=== PATIENT | male | born 1980 | race Caucasian/White ===

== ENCOUNTER 2016-08-07 09:35 | Emergency (ER) | payer MEDICARE ==
[~2016-08-07 09:35] MED LIST: /CELE20CA OR; /FENT50PA TD; AMBI10TA OR; AMIT10TA2 PO; BUPR15TA OR; DOXE100C OR; MS C15TA5 OR; NICO21DI4 TD; OPAN10TA16 OR; PAIN325T OR; PERC5TAB8 OR; PREG50CA OR; SOMA350T OR; Vit B12 PO; XANA0.25 PO; [UNRECOGNIZED DRUG - REMARK]
--- NOTE | 2016-08-07 10:28 | EDDOCDS ---
Physician Documentation [facility] Name: Iker Harding Age: 36 yrs Sex: Male : 1980 Arrival Date: 08/07/2016 Time: 09:35 Bed Triage 1 Private MD: VIVIANE VILLATORO Disposition: 08/07/16 10:19 Discharged to Home/Self Care. Impression: Low back pain, Sciatica, left side. - Condition is Stable. - Discharge Instructions: Back Injury Prevention, Qipl-hj-Usfv, Back Pain, Adult, Rilr-dy-Mjwf. - Prescriptions for Robaxin- 750 750 mg Oral Tablet - take 1 tablet by ORAL route every 6 hours As needed; 40 tablet. etodolac 200 mg Oral Capsule - take 1 capsule by ORAL route 3 times per day; 30 capsule. - Medication Reconciliation, Local Pharmacy Hours form. - Follow up: Eduar Javier; When: Call to arrange an appointment; Reason: Further diagnostic work-up, Recheck today's complaints, Continuance of care. - Problem is an acute exacerbation. - Symptoms are unchanged. Historical: - Allergies: no known allergies; - Home Meds: 1. Motrin 800 mg oral tab as needed (Last dose: 08/07/2016 06:00) 2. Excedrin Back & Body 250-250 mg Oral tab as needed - PMHx: Asthma; back pain; Hypertension; Pneumonia; - PSHx: back surgery; left elbow; - Social history: Smoking status: Patient uses tobacco products, current every day smoker. No barriers to communication noted, The patient speaks fluent Croatian, Speaks appropriately for age. - Family history: Not pertinent. - : The pt / caregiver states he / she is not on anticoagulants. Home medication list is obtained from the patient. - Exposure Risk Screening:: None identified. Vital Signs: 08/07 09:37 BP 146 / 72; Pulse 88; Resp 18; Temp 97.6(O); Pulse Ox 100% on R/A; Weight 81.65 kg / dem1 180.01 lbs; Height 5 ft. 10 in. (177.80 cm); Pain 9/10; 09:37 Body Mass Index 25.83 (81.65 kg, 177.80 cm) dem1 Signatures: Vilma Dixon RN RN srm Wolfenden, Noe, PA PA btw MTDD
--- NOTE | 2016-08-07 10:28 | EDDOCDS ---
Nurse's Notes [facility] Name: Iker Harding Age: 36 yrs Sex: Male : 1980 Arrival Date: 08/07/2016 Time: 09:35 Bed Triage 1 Private MD: VIVIANE VILLATORO Diagnosis: Low back pain;Sciatica, left side Presentation: 08/07 10:08 Presenting complaint: Patient states: hx of low back pain and surgery. last night dog dash jumped on him and he developed left lower back pain that radiates down his leg to his foot. hx of numbness to last 3 toes to left foot. now its a burning feeling. Acute neurological deficits are not present. Mechanism of Injury: jumped n by his dog. Adult Sepsis Screening: The patient does not have new or worsening altered mentation. Patient's respiratory rate is less than 22. Systolic blood pressure is greater than 100. Patient has a qSOFA score of 0- Negative Sepsis Screen. Suicide/Homicide risk assessment- the patient denies having any suicidal and/or homicidal ideations and does not present with any other emotional, behavioral or mental health complaints. Status: Patient is not a retail customer service representative or dependent. Transition of care: patient was not received from another setting of care. 10:08 Acuity: AZAEL Level 4 [facility] 10:08 Method Of Arrival: Walkin/Carried/Asstd [facility] Triage Assessment: 10:10 General: Appears uncomfortable, Behavior is appropriate for age, cooperative. Pain: srm Pain currently is 9 out of 10 on a pain scale. HIV screening NA for this visit Offered previously. Musculoskeletal: left lower back pain that radiates down leg. Historical: - Allergies: no known allergies; - Home Meds: 1. Motrin 800 mg oral tab as needed (Last dose: 08/07/2016 06:00) 2. Excedrin Back & Body 250-250 mg Oral tab as needed - PMHx: Asthma; back pain; Hypertension; Pneumonia; - PSHx: back surgery; left elbow; - Social history: Smoking status: Patient uses tobacco products, current every day smoker. No barriers to communication noted, The patient speaks fluent Israeli, Speaks appropriately for age. - Family history: Not pertinent. - : The pt / caregiver states he / she is not on anticoagulants. Home medication list is obtained from the patient. - Exposure Risk Screening:: None identified. Screenin:26 Screening information is obtained from the patient. Fall risk: No risks identified. srm Assistance ADL's: requires no assistance with activities of daily living. Abuse/DV Screen: The patient / caregiver reports he/she is: not in a situation that causes fear, pain or injury. Nutritional screening: No deficits noted. Advance Directives: There is no active DNR order. home support is adequate. Assessment: 10:26 General: Appears uncomfortable, Behavior is appropriate for age, cooperative. srm Neurological: Level of Consciousness is awake, alert, Oriented to person, place, time, Moves all extremities. Full function. Respiratory: No deficits noted. Musculoskeletal: Reports left lower back pain. Vital Signs: 09:37 BP 146 / 72; Pulse 88; Resp 18; Temp 97.6(O); Pulse Ox 100% on R/A; Weight 81.65 kg; [facility] Height 5 ft. 10 in. (177.80 cm); Pain 9/10; 09:37 Body Mass Index 25.83 (81.65 kg, 177.80 cm) [facility] Vitals: 09:37 Log In Time: August 07, 2016 at 09:35. [facility] ED Course: 09:36 Patient visited by Barry Blanc. [facility] 09:36 Patient moved to Waiting [facility] 09:37 VIVIANE VILLATORO is Private Physician. [facility] 09:38 Patient visited by Barry Blanc. dem1 09:38 Patient moved to Pre RCE dem1 10:09 Triage Initiated srm 10:11 [facility] btw 10:11 Sameera Clark MD is Attending Physician. btw 10:11 Patient visited by Noe Salvador PA. btw 10:11 Patient moved to Triage 1 srm 10:19 Eduar Javier is Referral Physician. btw 10:26 The patient / caregiver is instructed regarding the plan of care and ED course. Patient srm has correct armband on for positive identification. 10:26 No IV's were initiated during this patient's visit. No procedures done that require srm assistance. Order Results: There are currently no results for this order. Outcome: 10:19 Discharge ordered by Provider. btw 10:26 Discharge Assessment: Patient awake, alert and oriented x 3. No cognitive and/or srm functional deficits noted. Patient verbalized understanding of disposition instructions. patient administered narcotics - no. The following High Risk Discharge criteria are identified: None. Discharged to home ambulatory. Condition: stable. Discharge instructions given to patient, Instructed on discharge instructions, follow up and referral plans. medication usage, Demonstrated understanding of instructions, medications, Pt was receptive of discharge instructions/ teaching. Prescriptions given X 2. No special radiology studies were completed. Property :Personal belongings accompany Pt. 10:27 Patient left the ED. srm Signatures: Vilma Dixon RN RN Noe Medina PA PA btw Mack, Demeishia dem1 MTDDieter
--- NOTE | 2016-08-09 11:28 | EDDOCDS ---
Physician Documentation [facility] Name: Iker Harding Age: 36 yrs Sex: Male : 1980 Arrival Date: 08/07/2016 Time: 09:35 Bed Triage 1 Private MD: VIVIANE VILLATORO Disposition: 08/07/16 10:19 Discharged to Home/Self Care. Impression: Low back pain, Sciatica, left side. - Condition is Stable. - Discharge Instructions: Back Injury Prevention, Mvuy-zh-Hugk, Back Pain, Adult, Divk-dg-Vfgn. - Prescriptions for Robaxin- 750 750 mg Oral Tablet - take 1 tablet by ORAL route every 6 hours As needed; 40 tablet. etodolac 200 mg Oral Capsule - take 1 capsule by ORAL route 3 times per day; 30 capsule. - Medication Reconciliation, Local Pharmacy Hours form. - Follow up: Eduar Javier; When: Call to arrange an appointment; Reason: Further diagnostic work-up, Recheck today's complaints, Continuance of care. - Problem is an acute exacerbation. - Symptoms are unchanged. Historical: - Allergies: no known allergies; - Home Meds: 1. Motrin 800 mg oral tab as needed (Last dose: 08/07/2016 06:00) 2. Excedrin Back & Body 250-250 mg Oral tab as needed - PMHx: Asthma; back pain; Hypertension; Pneumonia; - PSHx: back surgery; left elbow; - Social history: Smoking status: Patient uses tobacco products, current every day smoker. No barriers to communication noted, The patient speaks fluent Tamaz[place], Speaks appropriately for age. - Family history: Not pertinent. - : The pt / caregiver states he / she is not on anticoagulants. Home medication list is obtained from the patient. - Exposure Risk Screening:: None identified. Vital Signs: 08/07 09:37 BP 146 / 72; Pulse 88; Resp 18; Temp 97.6(O); Pulse Ox 100% on R/A; Weight 81.65 kg / dem1 180.01 lbs; Height 5 ft. 10 in. (177.80 cm); Pain 9/10; 09:37 Body Mass Index 25.83 (81.65 kg, 177.80 cm) dem1 MDM: 11:03 [facility] [place] Payment Agreement was scanned into [employer] and attached to record. lg 14:51 T-Sheet-- Draft Copy was scanned into [employer] and attached to record. gb Signatures: Vilma Dixon, RN RN srm Brunilda Juárez, Reg Reg gb eSrvando Gallegos, Reg Reg lg Noe Salvador, MICHAEL RODRIGUEZ btw The chart was reviewed and I authenticate all verbal orders and agree with the evaluation and treatment provided.Attachments: 11:03 [facility] Payment Agreement lg 14:51 T-Sheet-- Draft Copy gb Chart Complete MTDD
--- NOTE | 2016-08-09 11:28 | EDDOCDS ---
Nurse's Notes [facility] Name: Iker Harding Age: 36 yrs Sex: Male : 1980 Arrival Date: 08/07/2016 Time: 09:35 Bed Triage 1 Private MD: VIVIANE VILLATORO Diagnosis: Low back pain;Sciatica, left side Presentation: 08/07 10:08 Presenting complaint: Patient states: hx of low back pain and surgery. last night dog dash jumped on him and he developed left lower back pain that radiates down his leg to his foot. hx of numbness to last 3 toes to left foot. now its a burning feeling. Acute neurological deficits are not present. Mechanism of Injury: jumped n by his dog. Adult Sepsis Screening: The patient does not have new or worsening altered mentation. Patient's respiratory rate is less than 22. Systolic blood pressure is greater than 100. Patient has a qSOFA score of 0- Negative Sepsis Screen. Suicide/Homicide risk assessment- the patient denies having any suicidal and/or homicidal ideations and does not present with any other emotional, behavioral or mental health complaints. 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 Transition of care: patient was not received from another setting of care. 10:08 Acuity: AZAEL Level 4 [facility] 10:08 Method Of Arrival: Walkin/Carried/Asstd [facility] Triage Assessment: 10:10 General: Appears uncomfortable, Behavior is appropriate for age, cooperative. Pain: srm Pain currently is 9 out of 10 on a pain scale. HIV screening NA for this visit Offered previously. Musculoskeletal: left lower back pain that radiates down leg. Historical: - Allergies: no known allergies; - Home Meds: 1. Motrin 800 mg oral tab as needed (Last dose: 08/07/2016 06:00) 2. Excedrin Back & Body 250-250 mg Oral tab as needed - PMHx: Asthma; back pain; Hypertension; Pneumonia; - PSHx: back surgery; left elbow; - Social history: Smoking status: Patient uses tobacco products, current every day smoker. No barriers to communication noted, The patient speaks fluent Omani, Speaks appropriately for age. - Family history: Not pertinent. - : The pt / caregiver states he / she is not on anticoagulants. Home medication list is obtained from the patient. - Exposure Risk Screening:: None identified. Screenin:26 Screening information is obtained from the patient. Fall risk: No risks identified. srm Assistance ADL's: requires no assistance with activities of daily living. Abuse/DV Screen: The patient / caregiver reports he/she is: not in a situation that causes fear, pain or injury. Nutritional screening: No deficits noted. Advance Directives: There is no active DNR order. home support is adequate. Assessment: 10:26 General: Appears uncomfortable, Behavior is appropriate for age, cooperative. srm Neurological: Level of Consciousness is awake, alert, Oriented to person, place, time, Moves all extremities. Full function. Respiratory: No deficits noted. Musculoskeletal: Reports left lower back pain. Vital Signs: 09:37 BP 146 / 72; Pulse 88; Resp 18; Temp 97.6(O); Pulse Ox 100% on R/A; Weight 81.65 kg; [facility] Height 5 ft. 10 in. (177.80 cm); Pain 9/10; 09:37 Body Mass Index 25.83 (81.65 kg, 177.80 cm) [facility] Vitals: 09:37 Log In Time: August 07, 2016 at 09:35. [facility] ED Course: 09:36 Patient visited by Barry Blanc. [facility] 09:36 Patient moved to Waiting [facility] 09:37 VIVIANE VILLATORO is Private Physician. [facility] 09:38 Patient visited by Barry Blanc. dem1 09:38 Patient moved to Pre RCE dem1 10:09 Triage Initiated srm 10:11 Noe Salvador PA is PHCP. btw 10:11 Sameera Clark MD is Attending Physician. btw 10:11 Patient visited by Noe Salvador PA. btw 10:11 Patient moved to Triage 1 srm 10:19 Eduar Javier is Referral Physician. btw 10:26 The patient / caregiver is instructed regarding the plan of care and ED course. Patient srm has correct armband on for positive identification. 10:26 No IV's were initiated during this patient's visit. No procedures done that require srm assistance. 11:03 [facility] Payment Agreement was scanned into [employer] and attached to record. lg 14:51 T-Sheet-- Draft Copy was scanned into [employer] and attached to record. gb Order Results: There are currently no results for this order. Outcome: 10:19 Discharge ordered by Provider. btw 10:26 Discharge Assessment: Patient awake, alert and oriented x 3. No cognitive and/or srm functional deficits noted. Patient verbalized understanding of disposition instructions. patient administered narcotics - no. The following High Risk Discharge criteria are identified: None. Discharged to home ambulatory. Condition: stable. Discharge instructions given to patient, Instructed on discharge instructions, follow up and referral plans. medication usage, Demonstrated understanding of instructions, medications, Pt was receptive of discharge instructions/ teaching. Prescriptions given X 2. No special radiology studies were completed. Property :Personal belongings accompany Pt. 10:27 Patient left the ED. srm Signatures: Vilma Dixon, RN RN srm Brunilda Juárez, Reg Reg gb Servando Gallegos, Reg Reg Noe Baltazar PA PA btw Barry Blanc1 Chart Complete MTDDieter
--- NOTE | 2016-08-09 11:28 | EDDOCDS ---
Physician Documentation [facility] Name: Iker Harding Age: 36 yrs Sex: Male : 1980 Arrival Date: 08/07/2016 Time: 09:35 Bed Triage 1 Private MD: VIVIANE VILLATORO Disposition: 08/07/16 10:19 Discharged to Home/Self Care. Impression: Low back pain, Sciatica, left side. - Condition is Stable. - Discharge Instructions: Back Injury Prevention, Bdjg-bp-Ebqg, Back Pain, Adult, Qxca-uc-Tgtw. - Prescriptions for Robaxin- 750 750 mg Oral Tablet - take 1 tablet by ORAL route every 6 hours As needed; 40 tablet. etodolac 200 mg Oral Capsule - take 1 capsule by ORAL route 3 times per day; 30 capsule. - Medication Reconciliation, Local Pharmacy Hours form. - Follow up: Eduar Javier; When: Call to arrange an appointment; Reason: Further diagnostic work-up, Recheck today's complaints, Continuance of care. - Problem is an acute exacerbation. - Symptoms are unchanged. Historical: - Allergies: no known allergies; - Home Meds: 1. Motrin 800 mg oral tab as needed (Last dose: 08/07/2016 06:00) 2. Excedrin Back & Body 250-250 mg Oral tab as needed - PMHx: Asthma; back pain; Hypertension; Pneumonia; - PSHx: back surgery; left elbow; - Social history: Smoking status: Patient uses tobacco products, current every day smoker. No barriers to communication noted, The patient speaks fluent Setswana, Speaks appropriately for age. - Family history: Not pertinent. - : The pt / caregiver states he / she is not on anticoagulants. Home medication list is obtained from the patient. - Exposure Risk Screening:: None identified. Vital Signs: 08/07 09:37 BP 146 / 72; Pulse 88; Resp 18; Temp 97.6(O); Pulse Ox 100% on R/A; Weight 81.65 kg / dem1 180.01 lbs; Height 5 ft. 10 in. (177.80 cm); Pain 9/10; 09:37 Body Mass Index 25.83 (81.65 kg, 177.80 cm) dem1 MDM: 11:03 [facility] [place] Payment Agreement was scanned into [employer] and attached to record. lg 14:51 T-Sheet-- Draft Copy was scanned into [employer] and attached to record. gb Signatures: Vilma Dixon, RN RN srm Brunilda Juárez, Reg Reg gb Servando Gallegos, Reg Reg lg Neo Salvador, MICHAEL RODRIGUEZ btw The chart was reviewed and I authenticate all verbal orders and agree with the evaluation and treatment provided.Attachments: 11:03 [facility] Payment Agreement lg 14:51 T-Sheet-- Draft Copy gb Chart Complete MTDD
== END 2016-08-07 10:27 | disposition home or self-care (01) ==
LOC: M ED 09:35
DX: M54.42 Lumbago with sciatica, left side (principal); J45.909 Unspecified asthma, uncomplicated; I10 Essential (primary) hypertension; Z72.0 Tobacco use

== ENCOUNTER 2016-08-15 19:18 | Emergency (ER) | payer MEDICARE ==
[2016-08-15] MEDS ORDERED: NORCO, ANEXSIA 5/325MG TABLET (HYDROcodone/ACETAMINOPHEN) As Ordered ONE (19:56)
--- NOTE | 2016-08-15 21:10 | EDDOCDS ---
Nurse's Notes [facility] Name: Iker Harding Age: 36 yrs Sex: Male : 1980 Arrival Date: 08/15/2016 Time: 19:18 Bed PR Private MD: NO PRIMARY PHYSICIAN, . Diagnosis: Sprain of lateral collateral ligament of right knee Presentation: 08/15 19:24 Presenting complaint: Patient states: Was squatting about a month ago and felt like mcp right knee popped out. Last night happened again and knee is painful still. Adult Sepsis Screening: The patient does not have new or worsening altered mentation. Patient's respiratory rate is less than 22. Systolic blood pressure is greater than 100. Patient has a qSOFA score of 0- Negative Sepsis Screen. Suicide/Homicide risk assessment- the patient denies having any suicidal and/or homicidal ideations and does not present with any other emotional, behavioral or mental health complaints. Status: Patient is not a family services specialist or dependent. Transition of care: patient was not received from another setting of care. 19:24 Acuity: AZAEL Level 4 [facility] 19:24 Method Of Arrival: Wheelchair [facility] Triage Assessment: 19:27 General: Appears uncomfortable, Behavior is cooperative. Pain: Location: right knee mcp Pain currently is 9 out of 10 on a pain scale. HIV screening NA for this visit Offered previously. Neurological: No deficits noted. Respiratory: No deficits noted. Derm: Skin is pink, warm & dry. Musculoskeletal: Circulation, motion, and sensation intact Range of motion limited in right knee. Historical: - Allergies: no known allergies; - Home Meds: 1. Motrin 800 mg Oral tab as needed 2. Excedrin Back & Body 250-250 mg Oral tab as needed 3. Lodine 200 mg Oral cap 1 cap 3 times per day 4. Flexeril 10 mg Oral tab 1 tab 3 times per day - PMHx: Asthma; back pain; Hypertension; Pneumonia; - PSHx: back surgeries x3; left elbow; left hand surgery; - Social history: Smoking status: Patient uses tobacco products, heavy tobacco smoker. No barriers to communication noted, The patient speaks fluent Luxembourgish. - Family history: Not pertinent. - : The pt / caregiver states he / she is not on anticoagulants. Home medication list is obtained from the patient. - Exposure Risk Screening:: None identified. Screenin:05 Screening information is obtained from the patient. Fall risk: No risks identified. ms18 Assistance ADL's: requires no assistance with activities of daily living. Abuse/DV Screen: The patient / caregiver reports he/she is: not in a situation that causes fear, pain or injury. Nutritional screening: No deficits noted. Advance Directives: There is no living will. home support is adequate. Assessment: 21:05 General: Appears in no apparent distress, uncomfortable. Pain: Location: right knee. ms18 Neurological: Level of Consciousness is awake, alert, obeys commands, Oriented to person, place, time. Respiratory: No deficits noted. Derm: Skin is pink, warm & dry. Musculoskeletal: Range of motion intact in all extremities. limited in right knee. Vital Signs: 19:19 BP 126 / 71; Pulse 80; Resp 18; Temp 96.2; Pulse Ox 99% ; Weight 81.65 kg; Height 5 ft. cmb 10 in. (177.80 cm); Pain 9/10; 20:58 BP 115 / 72; Pulse 72; Resp 18; Temp 96.9(O); Pulse Ox 96% on R/A; Pain 9/10; sew 19:19 Body Mass Index 25.83 (81.65 kg, 177.80 cm) [facility] Vitals: 19:19 Log In Time: August 15, 2016 at 19:18. [facility] ED Course: 19:19 Patient visited by Mary Jules. cmb 19:19 NO PRIMARY PHYSICIAN, . is Private Physician. cmb 19:19 Patient moved to Waiting cmb 19:20 Patient moved to Pre RCE cmb 19:25 Triage Initiated mcp 19:27 Patient visited by Fransisca Artis RN. mcp 19:27 Patient moved to Triage 3 mcp 19:31 Sudheer Loo PA is PHCP. mo1 19:31 Russell Cottrell DO is Attending Physician. mo1 19:41 Patient visited by Sudheer Loo PA. mo1 19:58 Patient moved to TR2 ms18 20:33 Patient moved to PR1 / 25 mcp 20:34 [facility] Payment Agreement was scanned into [employer] and attached to record. ks16 20:43 Giacomo Trivedi is Referral Physician. mo1 20:57 Waqas wrap to knee. Patient has positive distal pulse, brisk capillary refill, and sew positive sensation after application. Knee immobilizer applied on right knee. Patient with positive distal sensation and brisk distal capillary refill after application. 20:58 Crutch training done. sew 20:59 Patient visited by Tomasa Stanton. sew 21:05 The patient / caregiver is instructed regarding the plan of care and ED course. Patient ms18 has correct armband on for positive identification. Property sent home with patient. :Personal belongings accompany Pt. 21:05 No IV's were initiated during this patient's visit. No procedures done that require ms18 assistance. Administered Medications: 19:58 Drug: HYDROcodone-acetaminophen 1 tabs [hydrocodone 5 mg-acetaminophen 325 mg tablet (1 ms18 tabs)] Route: PO; Order Results: There are currently no results for this order. Outcome: 20:43 Discharge ordered by Provider. mo1 21:05 Discharge Assessment: Patient awake, alert and oriented x 3. No cognitive and/or ms18 functional deficits noted. Patient verbalized understanding of disposition instructions. patient administered narcotics - no. The following High Risk Discharge criteria are identified: None. Discharged to home ambulatory, with crutches. Condition: good Condition: stable Condition: improved. Discharge instructions given to patient, Instructed on discharge instructions, follow up and referral plans. medication usage, no driving heavy equipment, Demonstrated understanding of instructions, crutch walking, medications, Pt was receptive of discharge instructions/ teaching. Prescriptions given X 1. No special radiology studies were completed. 21:10 Patient left the ED. ms18 Signatures: Fransisca Artis RN RN mcp Boshart, Chelsea cmb Wallace, Sarah sew O'Hagan, Michael, PA PA mo1 Sachi Kong RN RN ms18 Saritha Baxter, Reg Reg ks16 Corrections: (The following items were deleted from the chart) 21:08 21:05 Musculoskeletal: Range of motion intact in all extremities. ms18 ms18 MTDD
--- NOTE | 2016-08-15 21:10 | EDDOCDS ---
Physician Documentation [facility] Name: Iker Harding Age: 36 yrs Sex: Male : 1980 Arrival Date: 08/15/2016 Time: 19:18 Bed Private MD: NO PRIMARY PHYSICIAN, . Disposition: 08/15/16 20:43 Discharged to Home/Self Care. Impression: Sprain of lateral collateral ligament of right knee. - Condition is Stable. - Discharge Instructions: Knee Immobilizer, Knee Pain. - Prescriptions for [place] 5- 325 mg Oral Tablet - take 1 tablet by ORAL route every 6 hours As needed MDD: 4 tabs; 20 tablet. - Medication Reconciliation, Work Release Form - 3 day, Local Pharmacy Hours form. - Follow up: Private Physician; When: Call to arrange an appointment; Reason: Recheck today's complaints, Continuance of care. Follow up: Giacomo Trivedi; When: Call to arrange an appointment; Reason: Recheck today's complaints, Continuance of care. - Problem is new. - Symptoms are unchanged. Historical: - Allergies: no known allergies; - Home Meds: 1. Motrin 800 mg Oral tab as needed 2. Excedrin Back & Body 250-250 mg Oral tab as needed 3. Lodine 200 mg Oral cap 1 cap 3 times per day 4. Flexeril 10 mg Oral tab 1 tab 3 times per day - PMHx: Asthma; back pain; Hypertension; Pneumonia; - PSHx: back surgeries x3; left elbow; left hand surgery; - Social history: Smoking status: Patient uses tobacco products, heavy tobacco smoker. No barriers to communication noted, The patient speaks fluent Yakut. - Family history: Not pertinent. - : The pt / caregiver states he / she is not on anticoagulants. Home medication list is obtained from the patient. - Exposure Risk Screening:: None identified. Vital Signs: 08/15 19:19 BP 126 / 71; Pulse 80; Resp 18; Temp 96.2; Pulse Ox 99% ; Weight 81.65 kg / 180.01 lbs; cmb Height 5 ft. 10 in. (177.80 cm); Pain 9/10; 20:58 BP 115 / 72; Pulse 72; Resp 18; Temp 96.9(O); Pulse Ox 96% on R/A; Pain 9/10; sew 19:19 Body Mass Index 25.83 (81.65 kg, 177.80 cm) cmb MDM: 19:47 HYDROcodone-acetaminophen 5 mg-325 mg 1 tabs PO once ordered. mo1 19:49 Knee, Complete Ordered. EDMS 20:33 Financial registration complete. [email or web address] 20:34 [facility] Payment Agreement was scanned into [email or web address] and attached to record. ks16 20:42 Knee Immobilizer ordered. mo1 20:42 Awqas Wrap ordered. mo1 20:42 Crutches ordered. mo1 Administered Medications: 19:58 Drug: HYDROcodone-acetaminophen 1 tabs [hydrocodone 5 mg-acetaminophen 325 mg tablet (1 ms18 tabs)] Route: PO; Signatures: Dispatcher [employer] EDFransisca Gómez RN RN [facility] Sudheer Loo PA PA mo1 Sachi Kong RN RN ms18 Saritha Baxter, Reg Reg ks16 The chart was reviewed and I authenticate all verbal orders and agree with the evaluation and treatment provided.Attachments: 20:34 [facility] Payment Agreement [email or web address] MTDD
--- NOTE | 2016-08-16 07:25 | REP ---
Clinical: Trauma. Technique: AP, lateral, bilateral oblique and sunrise views right knee . Findings: The osseous structures and joint spaces are intact and normal for age. There is no evidence for acute fracture or dislocation. No joint effusion is appreciated. Surrounding soft tissues are unremarkable. No subcutaneous emphysema or radiodense foreign body. Impression: Age-related changes. No obvious acute fracture or dislocation. Signed by Usman Magaña MD 08/16/2016 07:15 A
--- NOTE | 2016-08-17 22:11 | EDDOCDS ---
Nurse's Notes [facility] Name: Iker Harding Age: 36 yrs Sex: Male : 1980 Arrival Date: 08/15/2016 Time: 19:18 Bed PR Private MD: NO PRIMARY PHYSICIAN, . Diagnosis: Sprain of lateral collateral ligament of right knee Presentation: 08/15 19:24 Presenting complaint: Patient states: Was squatting about a month ago and felt like mcp right knee popped out. Last night happened again and knee is painful still. Adult Sepsis Screening: The patient does not have new or worsening altered mentation. Patient's respiratory rate is less than 22. Systolic blood pressure is greater than 100. Patient has a qSOFA score of 0- Negative Sepsis Screen. Suicide/Homicide risk assessment- the patient denies having any suicidal and/or homicidal ideations and does not present with any other emotional, behavioral or mental health complaints. Status: Patient is not a industrial service technician or dependent. Transition of care: patient was not received from another setting of care. 19:24 Acuity: AZAEL Level 4 [facility] 19:24 Method Of Arrival: Wheelchair [facility] Triage Assessment: 19:27 General: Appears uncomfortable, Behavior is cooperative. Pain: Location: right knee mcp Pain currently is 9 out of 10 on a pain scale. HIV screening NA for this visit Offered previously. Neurological: No deficits noted. Respiratory: No deficits noted. Derm: Skin is pink, warm & dry. Musculoskeletal: Circulation, motion, and sensation intact Range of motion limited in right knee. Historical: - Allergies: no known allergies; - Home Meds: 1. Motrin 800 mg Oral tab as needed 2. Excedrin Back & Body 250-250 mg Oral tab as needed 3. Lodine 200 mg Oral cap 1 cap 3 times per day 4. Flexeril 10 mg Oral tab 1 tab 3 times per day - PMHx: Asthma; back pain; Hypertension; Pneumonia; - PSHx: back surgeries x3; left elbow; left hand surgery; - Social history: Smoking status: Patient uses tobacco products, heavy tobacco smoker. No barriers to communication noted, The patient speaks fluent Thai. - Family history: Not pertinent. - : The pt / caregiver states he / she is not on anticoagulants. Home medication list is obtained from the patient. - Exposure Risk Screening:: None identified. Screenin:05 Screening information is obtained from the patient. Fall risk: No risks identified. ms18 Assistance ADL's: requires no assistance with activities of daily living. Abuse/DV Screen: The patient / caregiver reports he/she is: not in a situation that causes fear, pain or injury. Nutritional screening: No deficits noted. Advance Directives: There is no living will. home support is adequate. Assessment: 21:05 General: Appears in no apparent distress, uncomfortable. Pain: Location: right knee. ms18 Neurological: Level of Consciousness is awake, alert, obeys commands, Oriented to person, place, time. Respiratory: No deficits noted. Derm: Skin is pink, warm & dry. Musculoskeletal: Range of motion intact in all extremities. limited in right knee. Vital Signs: 19:19 BP 126 / 71; Pulse 80; Resp 18; Temp 96.2; Pulse Ox 99% ; Weight 81.65 kg; Height 5 ft. cmb 10 in. (177.80 cm); Pain 9/10; 20:58 BP 115 / 72; Pulse 72; Resp 18; Temp 96.9(O); Pulse Ox 96% on R/A; Pain 9/10; sew 19:19 Body Mass Index 25.83 (81.65 kg, 177.80 cm) [facility] Vitals: 19:19 Log In Time: August 15, 2016 at 19:18. [facility] ED Course: 19:19 Patient visited by Mary Jules. cmb 19:19 NO PRIMARY PHYSICIAN, . is Private Physician. cmb 19:19 Patient moved to Waiting cmb 19:20 Patient moved to Pre RCE cmb 19:25 Triage Initiated mcp 19:27 Patient visited by Fransisca Artis RN. mcp 19:27 Patient moved to Triage 3 mcp 19:31 Sudheer Loo PA is PHCP. mo1 19:31 Russell Cottrell DO is Attending Physician. mo1 19:41 Patient visited by Sudheer Loo PA. mo1 19:58 Patient moved to TR2 ms18 20:33 Patient moved to PR1 / 25 mcp 20:34 [facility] Payment Agreement was scanned into [employer] and attached to record. ks16 20:43 Giacomo Trivedi is Referral Physician. mo1 20:57 Waqas wrap to knee. Patient has positive distal pulse, brisk capillary refill, and sew positive sensation after application. Knee immobilizer applied on right knee. Patient with positive distal sensation and brisk distal capillary refill after application. 20:58 Crutch training done. sew 20:59 Patient visited by Tomasa Stanton. sew 21:05 The patient / caregiver is instructed regarding the plan of care and ED course. Patient ms18 has correct armband on for positive identification. Property sent home with patient. :Personal belongings accompany Pt. 21:05 No IV's were initiated during this patient's visit. No procedures done that require ms18 assistance. 08/16 07:30 Knee, Complete Returned. EDMN 09:15 T-Sheet-- Draft Copy was scanned into [employer] and attached to record. [facility] Administered Medications: 08/15 19:58 Drug: HYDROcodone-acetaminophen 1 tabs [hydrocodone 5 mg-acetaminophen 325 mg tablet (1 ms18 tabs)] Route: PO; Order Results: Radiology Order: Knee, Complete Test: Knee, Complete REASON FOR EXAMINATION: Trauma; Clinical: Trauma.; ; Technique: AP, lateral, bilateral oblique and sunrise views right knee .; ; Findings: The osseous structures and joint spaces are intact and normal for age.; There is no evidence for acute fracture or dislocation. No joint effusion is; appreciated. Surrounding soft tissues are unremarkable. No subcutaneous; emphysema or radiodense foreign body.; ; Impression:; Age-related changes. No obvious acute fracture or dislocation.; ; ; Signed by; Usman Magaña MD 08/16/2016 07:15 A; Outcome: 20:43 Discharge ordered by Provider. mo1 21:05 Discharge Assessment: Patient awake, alert and oriented x 3. No cognitive and/or ms18 functional deficits noted. Patient verbalized understanding of disposition instructions. patient administered narcotics - no. The following High Risk Discharge criteria are identified: None. Discharged to home ambulatory, with crutches. Condition: good Condition: stable Condition: improved. Discharge instructions given to patient, Instructed on discharge instructions, follow up and referral plans. medication usage, no driving heavy equipment, Demonstrated understanding of instructions, crutch walking, medications, Pt was receptive of discharge instructions/ teaching. Prescriptions given X 1. No special radiology studies were completed. 21:10 Patient left the ED. ms18 Signatures: Dispatcher MedHost Fransisca Dumont, JACLYN RN Mary Mora Sarah sew O'Hagan, Michael, PA PA Sachi Alex RN RN ms18 Saritha Baxter, Reg Reg ks16 Jalen, Tomasa rhodes Corrections: (The following items were deleted from the chart) 21:08 21:05 Musculoskeletal: Range of motion intact in all extremities. ms18 ms18 Chart Complete MTDD
--- NOTE | 2016-08-17 22:11 | EDDOCDS ---
Physician Documentation [facility] Name: Iker Harding Age: 36 yrs Sex: Male : 1980 Arrival Date: 08/15/2016 Time: 19:18 Bed Private MD: NO PRIMARY PHYSICIAN, . Disposition: 08/15/16 20:43 Discharged to Home/Self Care. Impression: Sprain of lateral collateral ligament of right knee. - Condition is Stable. - Discharge Instructions: Knee Immobilizer, Knee Pain. - Prescriptions for [place] 5- 325 mg Oral Tablet - take 1 tablet by ORAL route every 6 hours As needed MDD: 4 tabs; 20 tablet. - Medication Reconciliation, Work Release Form - 3 day, Local Pharmacy Hours form. - Follow up: Private Physician; When: Call to arrange an appointment; Reason: Recheck today's complaints, Continuance of care. Follow up: Giacomo Trivedi; When: Call to arrange an appointment; Reason: Recheck today's complaints, Continuance of care. - Problem is new. - Symptoms are unchanged. Historical: - Allergies: no known allergies; - Home Meds: 1. Motrin 800 mg Oral tab as needed 2. Excedrin Back & Body 250-250 mg Oral tab as needed 3. Lodine 200 mg Oral cap 1 cap 3 times per day 4. Flexeril 10 mg Oral tab 1 tab 3 times per day - PMHx: Asthma; back pain; Hypertension; Pneumonia; - PSHx: back surgeries x3; left elbow; left hand surgery; - Social history: Smoking status: Patient uses tobacco products, heavy tobacco smoker. No barriers to communication noted, The patient speaks fluent Syriac. - Family history: Not pertinent. - : The pt / caregiver states he / she is not on anticoagulants. Home medication list is obtained from the patient. - Exposure Risk Screening:: None identified. Vital Signs: 08/15 19:19 BP 126 / 71; Pulse 80; Resp 18; Temp 96.2; Pulse Ox 99% ; Weight 81.65 kg / 180.01 lbs; cmb Height 5 ft. 10 in. (177.80 cm); Pain 9/10; 20:58 BP 115 / 72; Pulse 72; Resp 18; Temp 96.9(O); Pulse Ox 96% on R/A; Pain 9/10; sew 19:19 Body Mass Index 25.83 (81.65 kg, 177.80 cm) cmb MDM: 19:47 HYDROcodone-acetaminophen 5 mg-325 mg 1 tabs PO once ordered. mo1 19:49 Knee, Complete Ordered. EDMS 20:33 Financial registration complete. ks16 20:34 [facility] Payment Agreement was scanned into [employer] and attached to record. ks16 20:42 Knee Immobilizer ordered. mo1 20:42 Waqas Wrap ordered. mo1 20:42 Crutches ordered. mo1 08/16 09:15 T-Sheet-- Draft Copy was scanned into [employer] and attached to record. se Administered Medications: 08/15 19:58 Drug: HYDROcodone-acetaminophen 1 tabs [hydrocodone 5 mg-acetaminophen 325 mg tablet (1 ms18 tabs)] Route: PO; Signatures: Dispatcher MedHost EDMS Fransisca Artis RN RN [facility] Sudheer Loo PA PA mo1 Sachi Kong RN RN ms18 Saritha Baxter, Reg Reg ks16 Tomasa Rao [facility] The chart was reviewed and I authenticate all verbal orders and agree with the evaluation and treatment provided.Attachments: 20:34 [facility] Payment Agreement ks16 08/16 09:15 T-Sheet-- Draft Copy [facility] Chart Complete MTDD
--- NOTE | 2016-08-17 22:11 | EDDOCDS ---
Physician Documentation [facility] Name: Iker Harding Age: 36 yrs Sex: Male : 1980 Arrival Date: 08/15/2016 Time: 19:18 Bed Private MD: NO PRIMARY PHYSICIAN, . Disposition: 08/15/16 20:43 Discharged to Home/Self Care. Impression: Sprain of lateral collateral ligament of right knee. - Condition is Stable. - Discharge Instructions: Knee Immobilizer, Knee Pain. - Prescriptions for [place] 5- 325 mg Oral Tablet - take 1 tablet by ORAL route every 6 hours As needed MDD: 4 tabs; 20 tablet. - Medication Reconciliation, Work Release Form - 3 day, Local Pharmacy Hours form. - Follow up: Private Physician; When: Call to arrange an appointment; Reason: Recheck today's complaints, Continuance of care. Follow up: Giacomo Trivedi; When: Call to arrange an appointment; Reason: Recheck today's complaints, Continuance of care. - Problem is new. - Symptoms are unchanged. Historical: - Allergies: no known allergies; - Home Meds: 1. Motrin 800 mg Oral tab as needed 2. Excedrin Back & Body 250-250 mg Oral tab as needed 3. Lodine 200 mg Oral cap 1 cap 3 times per day 4. Flexeril 10 mg Oral tab 1 tab 3 times per day - PMHx: Asthma; back pain; Hypertension; Pneumonia; - PSHx: back surgeries x3; left elbow; left hand surgery; - Social history: Smoking status: Patient uses tobacco products, heavy tobacco smoker. No barriers to communication noted, The patient speaks fluent Sami. - Family history: Not pertinent. - : The pt / caregiver states he / she is not on anticoagulants. Home medication list is obtained from the patient. - Exposure Risk Screening:: None identified. Vital Signs: 08/15 19:19 BP 126 / 71; Pulse 80; Resp 18; Temp 96.2; Pulse Ox 99% ; Weight 81.65 kg / 180.01 lbs; cmb Height 5 ft. 10 in. (177.80 cm); Pain 9/10; 20:58 BP 115 / 72; Pulse 72; Resp 18; Temp 96.9(O); Pulse Ox 96% on R/A; Pain 9/10; sew 19:19 Body Mass Index 25.83 (81.65 kg, 177.80 cm) cmb MDM: 19:47 HYDROcodone-acetaminophen 5 mg-325 mg 1 tabs PO once ordered. mo1 19:49 Knee, Complete Ordered. EDMS 20:33 Financial registration complete. ks16 20:34 [facility] Payment Agreement was scanned into [employer] and attached to record. ks16 20:42 Knee Immobilizer ordered. mo1 20:42 Waqas Wrap ordered. mo1 20:42 Crutches ordered. mo1 08/16 09:15 T-Sheet-- Draft Copy was scanned into [employer] and attached to record. se Administered Medications: 08/15 19:58 Drug: HYDROcodone-acetaminophen 1 tabs [hydrocodone 5 mg-acetaminophen 325 mg tablet (1 ms18 tabs)] Route: PO; Signatures: Dispatcher MedHost EDMS Frasnisca Artis RN RN [facility] Sudheer Loo PA PA mo1 Sachi Kong RN RN ms18 Saritha Baxter, Reg Reg ks16 Tomasa Rao [facility] The chart was reviewed and I authenticate all verbal orders and agree with the evaluation and treatment provided.Attachments: 20:34 [facility] Payment Agreement ks16 08/16 09:15 T-Sheet-- Draft Copy [facility] Chart Complete MTDD
== END 2016-08-15 21:10 | disposition home or self-care (01) ==
LOC: M ED 19:18
DX: S83.421A Sprain of lateral collateral ligament of right knee, initial encounter (principal); X50.0XXA Overexertion from strenuous movement or load, initial encounter; Y92.89 Other specified places as the place of occurrence of the external cause; Y93.89 Activity, other specified; Y99.0 Civilian activity done for income or pay; I10 Essential (primary) hypertension; J45.909 Unspecified asthma, uncomplicated; M54.9 Dorsalgia, unspecified; Z87.09 Personal history of other diseases of the respiratory system; Z79.899 Other long term (current) drug therapy; F17.210 Nicotine dependence, cigarettes, uncomplicated

== ENCOUNTER → 2016-09-16 | Outpatient (REF) | payer MEDICARE ==
[2016-09-16 14:13] LABS: URIC ACID, BODY FLUID 3.9 MG/DL (NOT ESTABLISHED)
[2016-09-16 14:53] LABS: RBC ADVIA BF 0; RBC CALC. BF < 10000 (< 10mm3 cells/uL); SYNOVIAL FLUID COLOR YELLOW (YELLOW); WBC ADVIA BF 0.2; WBC CALC. BF 200 cells/uL (0-20)
[2016-09-16 14:54] LABS: BF DIFF IF INDICATED? YES (NO); HCT SOURCE RT KNEE
[2016-09-16 14:55] LABS: CRYSTALS, BODY FLUID NONE SEEN (NONE SEEN)
[2016-09-16 16:56] LABS: URIC ACID 3.6 MG/DL (3.5-7.2)
[2016-09-16 19:32] LABS: MEAN CORPUSCULAR HEMOGLOBIN 34.4 pg (27.0-33.0); MEAN CORPUSCULAR HGB CONC 34.2 g/dl (32.0-36.5); MEAN CORPUSCULAR VOLUME 100.5 fl (80.0-96.0); RED CELL DISTRIBUTION WIDTH 11.5 % (11.5-14.5); WHITE BLOOD COUNT 6.7 K/mm3 (4.0-10.0)
[2016-09-16 20:58] LABS: BASOPHILS 2 % (0-4); EOSINOPHILS 2 % (0-5)
[2016-09-16 22:11] LABS: ERYTHROCYTE SEDIMENTATION RATE 2 mm/hr (0-15)
[2016-09-16 22:15] LABS: CC BF DIFF EXAM CYTOCENTRIFUGE
[2016-09-19 00:06] LABS: Lyme Disease IgG/IgM Antibodie <0.91 ISR (0.00-0.90); Lyme Disease IgM Ab Quantitati <0.80 index (0.00-0.79)
== END ==
LOC: M LAB REF 13:04
PROVIDERS: ATTEND Orthopaedic Surgery
DX: M25.561 Pain in right knee (principal); M25.461 Effusion, right knee

== ENCOUNTER 2016-11-07 11:54 | Emergency (ER) | payer MEDICARE ==
[~2016-11-07] VITALS: Ht 177.8 cm; Wt 83.9 kg
[2016-11-07] MEDS ORDERED: KETOROLAC 60 MG/2 ML VIAL (J1885) IM ONE (12:15)
--- NOTE | 2016-11-07 13:01 | REP ---
Clinical: Trauma. Technique: AP, lateral, bilateral oblique and sunrise views of the right knee. Comparison: 08/15/2016. Findings: No significant change from prior examination. Mild age-related arthritic changes are appreciated. No acute fracture or dislocation. No definite effusion. Impression: Mild stable degenerative changes. No acute fracture dislocation. Signed by Usman Magaña MD 11/07/2016 12:52 P
--- NOTE | 2016-11-07 13:02 | REP ---
Clinical: Trauma . Technique: AP, lateral, bilateral oblique views right ankle. Findings: No acute fracture or dislocation. Skeletal structures and joint spaces are intact. Ankle mortise appears stable. Age-related changes noted. No subcutaneous emphysema or radiodense foreign body. Impression: Age-related degenerative change. No acute fracture dislocation. Signed by Usman Magaña MD 11/07/2016 12:53 P
[2016-11-07 13:03] VITALS: BP 129/69
[2016-11-07] MEDS ORDERED: PERC5TAB6 PO (13:08)
[2016-11-07] MEDS ORDERED: NAPR500T PO (13:08)
== END 2016-11-07 13:24 | disposition home or self-care (01) ==
LOC: M ED 12:32
DX: S93.401A Sprain of unspecified ligament of right ankle, initial encounter (principal); S83.91XA Sprain of unspecified site of right knee, initial encounter; S80.11XA Contusion of right lower leg, initial encounter; X58.XXXA Exposure to other specified factors, initial encounter; Y92.099 Unspecified place in other non-institutional residence as the place of occurrence of the external cause; Y93.9 Activity, unspecified; Y99.9 Unspecified external cause status; G89.29 Other chronic pain; F17.200 Nicotine dependence, unspecified, uncomplicated
CPT/HCPCS: 73564; 73610; 96372; 99282; J1885

== ENCOUNTER 2016-12-13 15:48 | Emergency (ER) | payer MEDICARE ==
[~2016-12-13] VITALS: Ht 177.8 cm; Wt 84.1 kg
[~2016-12-13 15:48] MED LIST changes: +NAPR500T PO; +PERC5TAB12 PO
[2016-12-13 15:49] VITALS: BP 143/77
[2016-12-13] MEDS ORDERED: PERC5TAB12 PO (16:36)
== END 2016-12-13 16:52 | disposition home or self-care (01) ==
LOC: M ED 16:49
DX: G89.18 Other acute postprocedural pain (principal); M25.561 Pain in right knee; Z76.0 Encounter for issue of repeat prescription; G40.909 Epilepsy, unspecified, not intractable, without status epilepticus; F41.9 Anxiety disorder, unspecified; F32.9 Major depressive disorder, single episode, unspecified; F17.200 Nicotine dependence, unspecified, uncomplicated

== ENCOUNTER 2017-01-12 14:49 | Emergency (ER) | payer MEDICARE ==
[~2017-01-12] VITALS: Ht 177.8 cm; Wt 81.9 kg
[2017-01-12 14:49] VITALS: BP 146/82
[2017-01-12] MEDS ORDERED: IBUP200C10 PO (15:06)
[2017-01-12] MEDS ORDERED: EXCETAB80 PO (15:06)
[2017-01-12] MEDS ORDERED: CLAR1TAB2 PO (15:18)
[2017-01-12] MEDS ORDERED: AUGM875T28 PO (15:18)
[2017-01-12] MEDS ORDERED: MUCI600T37 PO (15:18)
== END 2017-01-12 15:40 | disposition home or self-care (01) ==
LOC: M ED 14:49
DX: H66.93 Otitis media, unspecified, bilateral (principal); J01.90 Acute sinusitis, unspecified; F17.200 Nicotine dependence, unspecified, uncomplicated; R56.9 Unspecified convulsions; G89.29 Other chronic pain; M54.9 Dorsalgia, unspecified; F41.9 Anxiety disorder, unspecified; F32.9 Major depressive disorder, single episode, unspecified; Z79.899 Other long term (current) drug therapy

== ENCOUNTER 2017-08-02 22:50 | Emergency (ER) | payer OTHER, MEDICARE ==
[2017-08-03] MEDS: METHOCARBAMOL 750 MG TAB PO ×2 (02:13)
[2017-08-03] MEDS: PERCOCET 5MG/325MG TAB PO ×2 (02:14)
[2017-08-03] MEDS: MORPHINE 2 MG/ML 1ML SYRINGE (J2270) IM ×2 (03:07)
[2017-08-03] MEDS: KETOROLAC 30 MG/ML VIAL (J1885) IM ×2 (03:08)
== END 2017-08-03 03:54 | disposition home or self-care (01) ==
LOC: M ED 22:50
DX: S39.012A Strain of muscle, fascia and tendon of lower back, initial encounter (principal); X58.XXXA Exposure to other specified factors, initial encounter; Y92.9 Unspecified place or not applicable; Y93.89 Activity, other specified; Y99.0 Civilian activity done for income or pay; G89.29 Other chronic pain; M54.9 Dorsalgia, unspecified; R56.9 Unspecified convulsions; K21.9 Gastro-esophageal reflux disease without esophagitis; F32.9 Major depressive disorder, single episode, unspecified; F41.9 Anxiety disorder, unspecified; Z79.899 Other long term (current) drug therapy
CPT/HCPCS: J1885

== ENCOUNTER 2017-08-03 21:39 | Emergency (ER) | payer OTHER, MEDICARE ==
[2017-08-04] MEDS: dexameTHASONE 20 MG/5 ML VIAL (J1100) IV (03:21)
[2017-08-04] MEDS: KETOROLAC 30 MG/ML VIAL (J1885) IV (03:22)
[2017-08-04] MEDS: MORPHINE 10 MG/ML 1ML VIAL (J2270) IV (05:07)
[2017-08-04] MEDS: MORPHINE 4 MG/ML 1ML VIAL (J2270) IV (07:26)
== END 2017-08-04 10:32 | disposition home or self-care (01) ==
LOC: M ED 21:39
DX: M51.06 Intervertebral disc disorders with myelopathy, lumbar region (principal); M79.605 Pain in left leg; M54.5 Low back pain; G89.29 Other chronic pain; G43.909 Migraine, unspecified, not intractable, without status migrainosus; F17.200 Nicotine dependence, unspecified, uncomplicated
CPT/HCPCS: J2270

== ENCOUNTER 2017-11-24 08:58 | Outpatient (RCR) | payer OTHER, MEDICARE | END 2017-12-18 | LOC: M PT 11-25 09:53 | DX: Z47.89 Encounter for other orthopedic aftercare (principal); Z98.890 Other specified postprocedural states | CPT/HCPCS: 97010 ==

== ENCOUNTER 2017-12-02 14:58 | Observation (INO) | payer OTHER ==
[2017-12-02] MEDS: KETOROLAC 30 MG/ML VIAL (J1885) IV (15:40)
[2017-12-02] MEDS: ONDANSETRON 4MG/2ML VIAL (J2405) IV ×2 (15:40→20:56)
[2017-12-02] MEDS: MORPHINE 4 MG/ML 1ML VIAL/SYRINGE (J2270) IV ×2 (15:41→20:56)
[2017-12-02 15:50] LABS: BASO # 0.1 10^3/uL (0.0-0.2); BASO % 0.8 % (0.0-1.0); EOS # 0.1 10^3/uL (0.0-0.50); EOS % 1.2 % (0.0-3.0); HEMOGLOBIN 15.2 g/dl (13.5-17.5); IMMATURE GRANULOCYTE % 0.4 % (0-3.0); LYMPH # 1.4 10^3/uL (1.5-4.5); LYMPH % 12.7 % (24.0-44.0); MEAN CORPUSCULAR HEMOGLOBIN 33.8 pg (27.0-33.0); MEAN CORPUSCULAR HGB CONC 35.3 g/dl (32.0-36.5); MEAN CORPUSCULAR VOLUME 95.6 fl (80.0-96.0); MONO # 0.7 10^3/uL (0.0-0.8); MONO % 6.5 % (0.0-5.0); NEUTROPHILS # 8.9 10^3/uL (1.8-7.7); NEUTROPHILS % 78.4 % (36.0-66.0); PLATELET COUNT, AUTOMATED 261 10^3/uL (150-450); RED CELL DISTRIBUTION WIDTH 11.9 % (11.5-14.5); WHITE BLOOD COUNT 11.3 10^3/uL (4.0-10.0)
[2017-12-02 16:24] LABS: ANION GAP 10 MEQ/L (8-16); BLOOD UREA NITROGEN 14 MG/DL (7-18); CALCIUM LEVEL 9.4 MG/DL (8.5-10.1); CARBON DIOXIDE LEVEL 26 MEQ/L (21-32); CHLORIDE LEVEL 107 MEQ/L (98-107); CREATININE FOR GFR 1.23 MG/DL (0.70-1.30); GLOMERULAR FILTRATION RATE > 60.0 (>60); GLUCOSE, FASTING 87 MG/DL (70-100); SODIUM LEVEL 143 MEQ/L (136-145)
[2017-12-02] MEDS: HYDROmorphone HCL 1 MG/ML SYRINGE (J1170) IV ×2 (16:45→19:03)
[2017-12-02] MEDS: methylPREDNISolone INJ 125 MG/2 ML VIAL (J2930) IV (17:06)
[2017-12-02] MEDS: diazePAM 5 MG TAB PO (18:14)
[2017-12-02] MEDS: LIDOCAINE 5% (LIDODERM) PATCH TD (20:54)
[2017-12-02] MEDS: SENOKOT S TAB PO (20:55)
[2017-12-02] MEDS: GABAPENTIN 100 MG CAP PO (20:55)
[2017-12-02] MEDS: CYCLOBENZAPRINE 5MG TABLET PO (23:18)
[2017-12-02] MEDS: PERCOCET 5MG/325MG TAB PO (23:18)
[2017-12-03] MEDS ORDERED: IBUPROFEN 800 MG TAB PO
[2017-12-03] MEDS: diazePAM 5 MG TAB PO (00:22)
[2017-12-03] MEDS: MORPHINE 4 MG/ML 1ML VIAL/SYRINGE (J2270) IV ×3 (00:23→07:21)
[2017-12-03] MEDS: PERCOCET 5MG/325MG TAB PO (04:44)
[2017-12-03 06:17] LABS: HEMATOCRIT 41.8 % (42.0-52.0); HEMOGLOBIN 14.8 g/dl (13.5-17.5); MEAN CORPUSCULAR HEMOGLOBIN 33.6 pg (27.0-33.0); MEAN CORPUSCULAR HGB CONC 35.4 g/dl (32.0-36.5); MEAN CORPUSCULAR VOLUME 94.8 fl (80.0-96.0); PLATELET COUNT, AUTOMATED 251 10^3/uL (150-450); RED BLOOD COUNT 4.41 10^6/uL (4.30-6.10); RED CELL DISTRIBUTION WIDTH 11.3 % (11.5-14.5); WHITE BLOOD COUNT 13.9 10^3/uL (4.0-10.0)
[2017-12-03 06:35] LABS: ALBUMIN 4.1 GM/DL (3.2-5.2); ALBUMIN/GLOBULIN RATIO 1.32 (1.00-1.93); ALKALINE PHOSPHATASE 74 U/L (45-117); ALT/SGPT 26 U/L (12-78); ANION GAP 11 MEQ/L (8-16); AST/SGOT 17 U/L (7-37); BILIRUBIN,TOTAL 0.5 MG/DL (0.2-1.0); BLOOD UREA NITROGEN 18 MG/DL (7-18); CALCIUM LEVEL 8.6 MG/DL (8.5-10.1); CARBON DIOXIDE LEVEL 26 MEQ/L (21-32); CHLORIDE LEVEL 103 MEQ/L (98-107); CREATININE FOR GFR 1.31 MG/DL (0.70-1.30); GLOMERULAR FILTRATION RATE > 60.0 (>60); GLUCOSE, FASTING 158 MG/DL (70-100); MAGNESIUM LEVEL 2.1 MG/DL (1.8-2.4); SODIUM LEVEL 140 MEQ/L (136-145); TOTAL PROTEIN 7.2 GM/DL (6.4-8.2)
[2017-12-03] MEDS: **NOTE PATIENT COMMENT** MISC XX (08:00)
[2017-12-03] MEDS: NS 1,000 ML IV ×3 (08:11→23:18)
[2017-12-03] MEDS: SENOKOT S TAB PO ×2 (09:00→20:02)
[2017-12-03] MEDS: GABAPENTIN 100 MG CAP PO ×3 (09:47→20:01)
[2017-12-03] MEDS: ENOXAPARIN 40 MG/0.4 ML SYRINGE (J1650) SC (09:48)
[2017-12-03] MEDS ORDERED: CYCLOBENZAPRINE 5MG TABLET PO (10:00)
[2017-12-03] MEDS ORDERED: MORPHINE 4 MG/ML 1ML VIAL/SYRINGE (J2270) IV (10:00)
[2017-12-03] MEDS ORDERED: HYDROMORPHONE HCL 0.5 MG/ 0.5 ML SYRINGE (J1170 PER 1) IV ×3 (10:00→16:00)
[2017-12-03] MEDS: HYDROMORPHONE HCL 0.5 MG/ 0.5 ML SYRINGE (J1170 PER 1) IV ×5 (10:20→23:03)
[2017-12-03] MEDS ORDERED: PROHANCE 279.3MG/ML 5ML VIAL (A9576) As Ordered (12:01)
[2017-12-03] MEDS ORDERED: PROHANCE 279.3MG/ML 15ML VIAL (A9576) As Ordered (12:01)
[2017-12-03] MEDS ORDERED: HYDROmorphone HCL 2 MG/ML 1ML VIAL (J1170) IV (15:45)
[2017-12-03] MEDS: OXAZEPAM 10 MG CAP PO ×2 (16:37→20:01)
[2017-12-03] MEDS: dexameTHASONE 4 MG/ML 1ML VIAL (J1100) IV ×2 (16:44→21:24)
[2017-12-03] MEDS: NICOTINE 21MG/24HR 1 EA TRANSDERMAL TD (17:47)
[2017-12-04] MEDS: HYDROMORPHONE HCL 0.5 MG/ 0.5 ML SYRINGE (J1170 PER 1) IV (05:38)
[2017-12-04] MEDS: dexameTHASONE 4 MG/ML 1ML VIAL (J1100) IV ×2 (05:38→08:56)
[2017-12-04 05:59] LABS: HEMATOCRIT 37.5 % (42.0-52.0); HEMOGLOBIN 13.2 g/dl (13.5-17.5); MEAN CORPUSCULAR HEMOGLOBIN 33.7 pg (27.0-33.0); MEAN CORPUSCULAR HGB CONC 35.2 g/dl (32.0-36.5); MEAN CORPUSCULAR VOLUME 95.7 fl (80.0-96.0); PLATELET COUNT, AUTOMATED 213 10^3/uL (150-450); RED BLOOD COUNT 3.92 10^6/uL (4.30-6.10); RED CELL DISTRIBUTION WIDTH 11.6 % (11.5-14.5); WHITE BLOOD COUNT 13.9 10^3/uL (4.0-10.0)
[2017-12-04 06:19] LABS: ALBUMIN 3.7 GM/DL (3.2-5.2); ALBUMIN/GLOBULIN RATIO 1.16 (1.00-1.93); ALKALINE PHOSPHATASE 63 U/L (45-117); ALT/SGPT 24 U/L (12-78); ANION GAP 9 MEQ/L (8-16); AST/SGOT 12 U/L (7-37); BILIRUBIN,TOTAL 0.2 MG/DL (0.2-1.0); BLOOD UREA NITROGEN 13 MG/DL (7-18); CALCIUM LEVEL 8.3 MG/DL (8.5-10.1); CARBON DIOXIDE LEVEL 27 MEQ/L (21-32); CHLORIDE LEVEL 105 MEQ/L (98-107); CREATININE FOR GFR 1.09 MG/DL (0.70-1.30); GLOMERULAR FILTRATION RATE > 60.0 (>60); GLUCOSE, FASTING 211 MG/DL (70-100); MAGNESIUM LEVEL 2.5 MG/DL (1.8-2.4); POTASSIUM SERUM 3.8 MEQ/L (3.5-5.1); SODIUM LEVEL 141 MEQ/L (136-145); TOTAL PROTEIN 6.9 GM/DL (6.4-8.2)
[2017-12-04] MEDS ORDERED: PERCOCET 5MG/325MG TAB PO (08:15)
[2017-12-04] MEDS: SENOKOT S TAB PO (08:52)
[2017-12-04] MEDS: OXAZEPAM 10 MG CAP PO (08:53)
[2017-12-04] MEDS: GABAPENTIN 100 MG CAP PO (08:53)
[2017-12-04] MEDS: PERCOCET 5MG/325MG TAB PO (08:55)
[2017-12-04] MEDS: ENOXAPARIN 40 MG/0.4 ML SYRINGE (J1650) SC (08:56)
== END 2017-12-04 12:15 | disposition home or self-care (01) ==
LOC: M ED 14:58 → M ED INP 18:55 → M MS5PR 20:25
DX: M54.5 Low back pain (principal); G89.29 Other chronic pain; Z98.1 Arthrodesis status; D72.829 Elevated white blood cell count, unspecified; R94.4 Abnormal results of kidney function studies; Z79.01 Long term (current) use of anticoagulants; Z79.899 Other long term (current) drug therapy; Z87.891 Personal history of nicotine dependence
CPT/HCPCS: J1170

== ENCOUNTER 2018-03-30 09:05 | Outpatient (RCR) | payer OTHER | END 2018-04-20 | LOC: M PT 09:05 | DX: Z47.89 Encounter for other orthopedic aftercare (principal); M54.5 Low back pain | CPT/HCPCS: 97010 ==

== ENCOUNTER 2018-04-21 10:40 | Outpatient (RCR) | payer OTHER | END 2018-05-20 | LOC: M PT 10:40 | DX: Z47.89 Encounter for other orthopedic aftercare (principal); M54.5 Low back pain | CPT/HCPCS: 97110 ==

== ENCOUNTER 2018-10-27 12:09 | Emergency (ER) | payer OTHER, SELFPAY ==
[~2018-10-27] VITALS: Ht 177.8 cm; Wt 84.6 kg
[~2018-10-27 12:09] MED LIST changes: -/CELE20CA OR; -/FENT50PA TD; +AUGM875T28 PO; +CELE1CAP4 OR; +CLAR1TAB2 PO; +CYCL5TAB PO; +EXCETAB80 PO; +FENT1DIS15 TD; +GABA-1171 PO; +IBUP200C25 PO; +MEDR4PAK PO; +MUCI600T37 PO; +NAPR-837 PO; -NAPR500T PO; +PERC7.5T11 PO; +PRED20TA PO; +VALI5TAB PO
[2018-10-27] MEDS ORDERED: DOXYCYCLINE HYCLATE 100 MG TAB PO ONE (13:30)
[2018-10-27 14:06] VITALS: BP 121/71
== END 2018-10-27 14:08 | disposition home or self-care (01) ==
LOC: M ED 12:09
DX: S80.862A Insect bite (nonvenomous), left lower leg, initial encounter (principal); W57.XXXA Bitten or stung by nonvenomous insect and other nonvenomous arthropods, initial encounter; Y92.89 Other specified places as the place of occurrence of the external cause; K21.9 Gastro-esophageal reflux disease without esophagitis; F17.210 Nicotine dependence, cigarettes, uncomplicated

== ENCOUNTER 2019-06-10 11:55 | Emergency (ER) | payer OTHER, SELFPAY ==
[~2019-06-10] VITALS: Ht 177.8 cm; Wt 86.4 kg
[2019-06-10 11:56] VITALS: BP 144/85
[2019-06-10] MEDS: KETOROLAC 60 MG/2 ML VIAL (J1885) IM ONE ×2 (12:40→12:43)
[2019-06-10] MEDS ORDERED: BACTRIM 160MG/800MG DS TAB PO ONE (12:45)
[2019-06-10] MEDS ORDERED: CYCL10TA PO (12:51)
[2019-06-10] MEDS ORDERED: BACT800T5 PO (12:51)
[2019-06-10] MEDS ORDERED: PRED20TA PO (12:51)
[2019-06-10] MEDS ORDERED: KETOROLAC TROMETHAMINE 10 MG TAB PO ONE (13:00)
== END 2019-06-10 12:56 | disposition home or self-care (01) ==
LOC: M ED 11:55
DX: G89.29 Other chronic pain (principal); M54.40 Lumbago with sciatica, unspecified side; F17.200 Nicotine dependence, unspecified, uncomplicated; R56.9 Unspecified convulsions; Z87.820 Personal history of traumatic brain injury; K21.9 Gastro-esophageal reflux disease without esophagitis; F41.9 Anxiety disorder, unspecified; F32.9 Major depressive disorder, single episode, unspecified

== ENCOUNTER → 2020-01-23 | Outpatient (CLI) | payer OTHER ==
[~2020-01-23] MED LIST changes: +BACT800T5 PO; +CYCL-707 PO
[2020-02-19 20:24] LABS: HEMATOCRIT 44.4 % (42.0-52.0); HEMOGLOBIN 15.4 g/dl (13.5-17.5); MEAN CORPUSCULAR HEMOGLOBIN 35.2 pg (27.0-33.0); MEAN CORPUSCULAR HGB CONC 34.7 g/dl (32.0-36.5); MEAN CORPUSCULAR VOLUME 101.4 fl (80.0-96.0); PLATELET COUNT, AUTOMATED 213 10^3/uL (150-450); RED BLOOD COUNT 4.38 10^6/uL (4.30-6.10); WHITE BLOOD COUNT 6.8 10^3/uL (4.0-10.0)
--- NOTE | 2020-03-13 11:23 | ECGEPIP ---
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
[2020-03-23 11:23] LABS: ALT/SGPT 40 U/L (12-78); BILIRUBIN,TOTAL 0.4 MG/DL (0.2-1.0); BLOOD UREA NITROGEN 12 MG/DL (7-18); CARBON DIOXIDE LEVEL 30 MEQ/L (21-32); CHLORIDE LEVEL 104 MEQ/L (98-107); CHOLESTEROL LEVEL 257 MG/DL (<200); CHOLESTEROL RISK RATIO 5.039 (<5); CREATININE FOR GFR 0.97 MG/DL (0.70-1.30); GLOMERULAR FILTRATION RATE > 60.0 (>60); GLUCOSE, FASTING 98 MG/DL (70-100); HDL CHOLESTEROL 51 MG/DL (>40); HEMOGLOBIN A1c 5.1 %; NON-HDL-C 206 MG/DL; POTASSIUM SERUM 4.3 MEQ/L (3.5-5.1); SODIUM LEVEL 139 MEQ/L (136-145); TESTOSTERONE 397 NG/DL (241-827); TOTAL PROTEIN 7.3 GM/DL (6.4-8.2); TRIGLYCERIDES LEVEL 542 MG/DL (<150)
== END ==
LOC: M LAB 07:10
PROVIDERS: ATTEND Family Medicine
DX: I10 Essential (primary) hypertension (principal); J44.9 Chronic obstructive pulmonary disease, unspecified; R53.83 Other fatigue; E03.9 Hypothyroidism, unspecified
CPT/HCPCS: 36415; 71046; 80053; 80061; 82306; 83036; 84403; 84443; 85027; 93005; G0103

== ENCOUNTER 2020-07-29 12:51 | Emergency (ER) | payer OTHER ==
[~2020-07-29] VITALS: Ht 177.8 cm; Wt 84.1 kg
[2020-07-29] MEDS ORDERED: OXYC10TA12 (13:00)
[2020-07-29] MEDS ORDERED: SIMV20TA22 (13:00)
[2020-07-29] MEDS ORDERED: METO1TAB87 (13:00)
[2020-07-29] MEDS ORDERED: DEXTROAMP (13:00)
--- NOTE | 2020-07-29 13:52 | REP ---
INDICATION: hemoptysis COMPARISON: 10/30/2015 TECHNIQUE: PA and lateral. FINDINGS: The mediastinum and cardiac silhouette are normal. The lung corral are clear and without acute consolidation, effusion, or pneumothorax. The skeletal structures are intact and normal. IMPRESSION: No acute cardiopulmonary process. <Electronically signed by Usman Magaña > 07/29/20 [id number]
[2020-07-29 14:21] LABS: BASO # 0.1 10^3/uL (0.0-0.2); BASO % 1.1 % (0.0-1.0); EOS # 0.1 10^3/uL (0.0-0.5); EOS % 1.7 % (0.0-3.0); HEMATOCRIT 44.3 % (42.0-52.0); LYMPH # 1.5 10^3/uL (1.5-5.0); MEAN CORPUSCULAR HGB CONC 33.9 g/dl (32.0-36.5); MEAN CORPUSCULAR VOLUME 97.6 fl (80.0-96.0); MONO # 0.4 10^3/uL (0.0-0.8); MONO % 6.6 % (0.0-5.0); NEUTROPHILS # 4.2 10^3/uL (1.5-8.5); NEUTROPHILS % 66.1 % (36.0-66.0); PLATELET COUNT, AUTOMATED 261 10^3/uL (150-450); RED BLOOD COUNT 4.54 10^6/uL (4.30-6.10); WHITE BLOOD COUNT 6.3 10^3/uL (4.0-10.0)
[2020-07-29 14:34] LABS: INR 0.91; PARTIAL THROMBOPLASTIN TIME 29.7 SECONDS (24.2-38.5); PROTHROMBIN TIME 12.4 SECONDS (12.5-14.3)
[2020-07-29 14:37] LABS: D-DIMER QUANT 321.88 ng/ml (<500)
[2020-07-29 14:45] LABS: ERYTHROCYTE SEDIMENTATION RATE 5 mm/hr (0-15)
[2020-07-29 14:47] LABS: ALBUMIN 4.5 GM/DL (3.2-5.2); ALT/SGPT 32 U/L (12-78); BILIRUBIN,DIRECT 0.1 MG/DL (0.0-0.2); BILIRUBIN,TOTAL 0.4 MG/DL (0.2-1.0); CPK CREATINE PHOSPHOKINASE 189 U/L (39-308); NT-PRO BNP 30 PG/ML (<125); TOTAL PROTEIN 8.2 GM/DL (6.4-8.2); TROPONIN I < 0.02 NG/ML (< 0.10)
[2020-07-29] MEDS ORDERED: MORPHINE 4 MG/ML 1ML VIAL/SYRINGE (J2270) IV ONE (15:45)
[2020-07-29] MEDS ORDERED: ISOVUE-370 76% 100ML VIAL As Ordered ONE (16:11)
--- NOTE | 2020-07-29 16:54 | REP ---
INDICATION: chest pain/coughing blood/back pain ?Aortic dis COMPARISON: 09/08/2010 TECHNIQUE: Axial contrast enhanced images from the thoracic inlet to the upper abdomen using angiographic technique with multiplanar re-formations. 100 ml Isovue 370 intravenous contrast material administered without complication. This CT examination was performed using the following dose reduction techniques: Automated exposure control, adjustment of mA and/or kv according to the patient's size, and use of iterative reconstruction technique. FINDINGS: Thoracic aorta is normal in appearance and caliber without aneurysm or dissection. Branch vessels at the aortic arch are normal. Pulmonary vasculature appears normal. Heart and pericardium are unremarkable and without cardiomegaly or pericardial effusion. Lung corral are relatively clear and without consolidation, obvious nodule or mass. No effusion or pneumothorax. Tracheobronchial tree is patent. No axillary, hilar, or mediastinal adenopathy. Musculoskeletal structures are intact and without acute osseous abnormality. IMPRESSION: Normal thoracic aorta without aneurysm or dissection. No acute mediastinal or pleuroparenchymal process. <Electronically signed by Usman Magaña > 07/29/20 [id number]
--- NOTE | 2020-07-29 17:00 | REP ---
INDICATION: chest pain/coughing blood/back pain ?Aortic dis COMPARISON: 10/30/2015 TECHNIQUE: Axial contrast-enhanced images from the lung bases to the mid pelvis using CT angiographic technique including multiplanar reformations, MIP reconstructions, and volume rendered CT aortogram. This CT examination was performed using the following dose reduction techniques: Automated exposure control, adjustment of mA and/or kv according to the patient's size, and use of iterative reconstruction technique. FINDINGS: Abdominal aorta and branch vessels through the bifurcation to common iliac and internal/external iliac arteries are normal. There is no evidence for aneurysm or dissection. No obvious areas of stenosis or occlusion. No periaortic inflammatory changes or fluid. Fatty infiltration to the liver noted without focal hepatic lesion. Spleen, pancreas, gallbladder, bilateral adrenal glands and kidneys are normal. Visualized enteric system without obstruction or acute inflammatory process including normal terminal ileum and appendix in the visualized right lower quadrant. No ascites. No free air. No adenopathy. Surrounding osseous structures without acute abnormality. Evidence for prior lumbar laminectomy and posterior fixation. IMPRESSION: 1. Normal abdominal aorta and branch vessels without aneurysm or dissection. 2. Hepatosteatosis. 3. No further acute process appreciated. <Electronically signed by Usman Magaña > 07/29/20 [id number]
[2020-07-29] MEDS ORDERED: KETOROLAC 30 MG/ML 1ML VIAL IV ONE (17:15)
[2020-07-29] MEDS ORDERED: CYCLOBENZAPRINE 10MG TABLET PO ONE (18:45)
[2020-07-29] MEDS ORDERED: PERCOCET 5MG/325MG TAB PO ONE (18:45)
[2020-07-29 20:21] LABS: CK-MB VALUE MASS 5.4 NG/ML (<3.6); CPK CREATINE PHOSPHOKINASE 152 U/L (39-308); MB/CK RELATIVE INDEX 3.55 (< OR =4); TROPONIN I < 0.02 NG/ML (< 0.10)
[2020-07-29] MEDS ORDERED: CYCL5TAB PO (20:37)
[2020-07-29 20:52] VITALS: BP 131/69
--- NOTE | 2020-07-30 08:54 | ECGEPIP ---
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
--- NOTE | 2020-07-30 08:57 | ECGEPIP ---
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
== END 2020-07-29 20:52 | disposition home or self-care (01) ==
LOC: M ED 12:51
DX: R07.89 Other chest pain (principal); M54.6 Pain in thoracic spine; M54.5 Low back pain; R56.9 Unspecified convulsions; K21.9 Gastro-esophageal reflux disease without esophagitis; F41.9 Anxiety disorder, unspecified; F32.9 Major depressive disorder, single episode, unspecified; F17.200 Nicotine dependence, unspecified, uncomplicated; K76.0 Fatty (change of) liver, not elsewhere classified
CPT/HCPCS: 71046; 71275; 74175; 80047; 80076; 82550; 82553; 83880; 84484; 85025; 85379; 85610; 85652; 85730; 86140; 86850; 86900; 86901; 93005; 96374; 96375; 99284; J1885; J2270; Q9967

== ENCOUNTER 2020-09-12 10:00 | Outpatient (RCR) | payer OTHER ==
[~2020-09-12 10:00] MED LIST changes: +DEXTROAMP; +METO1TAB87; +OXYC10TA12; +SIMV20TA22
== END 2020-09-18 ==
LOC: M PT 10:00
PROVIDERS: ATTEND Orthopaedic Surgery
DX: M54.16 Radiculopathy, lumbar region (principal)

== ENCOUNTER 2020-09-20 12:38 | Emergency (ER) | payer OTHER ==
[~2020-09-20] VITALS: Ht 177.8 cm; Wt 87.4 kg
[2020-09-20] MEDS ORDERED: ALPR1TAB3 (12:47)
[2020-09-20] MEDS ORDERED: QUET100T2 (12:47)
[2020-09-20] MEDS ORDERED: DEXTROAMP (12:47)
[2020-09-20] MEDS ORDERED: DOXE50CA (12:47)
[2020-09-20] MEDS ORDERED: NS 1,000 ML IV ONE (14:05)
[2020-09-20 14:30] LABS: BASO # 0.1 10^3/uL (0.0-0.2); EOS # 0.2 10^3/uL (0.0-0.5); EOS % 3.1 % (0.0-3.0); HEMATOCRIT 43.4 % (42.0-52.0); HEMOGLOBIN 15.3 g/dl (13.5-17.5); LYMPH % 19.3 % (24.0-44.0); MEAN CORPUSCULAR HEMOGLOBIN 34.1 pg (27.0-33.0); MEAN CORPUSCULAR HGB CONC 35.3 g/dl (32.0-36.5); MEAN CORPUSCULAR VOLUME 96.7 fl (80.0-96.0); MONO # 0.4 10^3/uL (0.0-0.8); MONO % 7.9 % (2.0-8.0); NEUTROPHILS # 3.5 10^3/uL (1.5-8.5); NEUTROPHILS % 68.3 % (36.0-66.0); PLATELET COUNT, AUTOMATED 214 10^3/uL (150-450); RED BLOOD COUNT 4.49 10^6/uL (4.30-6.10); WHITE BLOOD COUNT 5.1 10^3/uL (4.0-10.0)
[2020-09-20 14:52] LABS: ALBUMIN 4.2 GM/DL (3.2-5.2); ALT/SGPT 29 U/L (12-78); BILIRUBIN,DIRECT 0.2 MG/DL (0.0-0.2); BILIRUBIN,TOTAL 0.4 MG/DL (0.2-1.0); C REACTIVE PROTEIN QUANTITATIV < 0.30 MG/DL (0.00-0.30)
[2020-09-20] MEDS ORDERED: METHOCARBAMOL 1,000 MG/10 ML VIAL (J2800) IV ONE (15:00)
[2020-09-20 15:06] LABS: ERYTHROCYTE SEDIMENTATION RATE 4 mm/hr (0-15)
[2020-09-20] MEDS ORDERED: MORPHINE 4 MG/ML 1ML VIAL/SYRINGE (J2270) IV ONE ×2 (15:25→16:25)
--- NOTE | 2020-09-20 15:44 | REP ---
INDICATION: severe back pain, injured 6 weeks ago. COMPARISON: 12/02/2017 TECHNIQUE: Noncontrast axial CT images with coronal and sagittal reconstructions. Orthopedic metal artifact reduction software utilized. FINDINGS: The sagittal reconstruction show pedicle screws and arch bars from L3 through S1 with the hardware intact. There is no compression fracture evident. There is disc space narrowing at L3-4 and L4-5 little more at L5-S1. The levels above that are normal there is no destructive lesion. See no acute vertebral fracture or compression deformity. Spine shows L3-4 through L5-S1 laminectomy with posterior fusion. Previous study only had an L4-5 laminectomy. Bone graft use along with the hardware for posterior fusion. The disc spaces from T10-11 a through L1-2 shows no disc bulge or herniation and no spinal or foraminal stenosis. At L2-3 some ligamentum flavum hypertrophy noted disc bulges seen. Kidder artifact limits evaluation, but no gross central canal or foraminal stenosis. At L3-4 there is no gross evidence for central canal or foraminal stenosis. At L4-5 no gross evidence for central canal stenosis or foraminal encroachment At L5-S1 no gross evidence for central canal stenosis. Marginal osteophytes contribute to foraminal encroachment on the left with the right foramen is borderline. Sacral ala, foramina, SI joints and visualized iliac wings were unremarkable. No other significant finding. IMPRESSION: 1. There is evidence of L3-4 through L5-S1 laminectomy and posterior fusion with pedicle screws in arch bars across those levels. This is new since the previous study which only had laminectomy without hardware at L4-5. There is no hardware failure. No visible fracture. 2. No definite central canal or foraminal stenosis at L3-4 and L4-5. 3. No central canal stenosis at L5-S1 but with foraminal encroachment on the left at L5-S1 due to marginal osteophytes. The right foramen was marginally adequate. 4. The mentum flavum and a disc bulge noted at L2-3 without gross central canal or foraminal stenosis. 5. Disc space narrowing at L3 4 through L5-S1, greatest at L5-S1. Slight progression at L4-5 for disc height but no compression fracture or destructive lesion of any of the vertebral bodies. <Electronically signed by Chance Lauren > 09/20/20 [id number]
--- NOTE | 2020-09-20 16:03 | REP ---
INDICATION: left hip pain, no recent injury. COMPARISON: None. TECHNIQUE: There are two views. FINDINGS: Mineralization and joint spaces are normal. There is no fracture or dislocation. There is no flattening or deformity of the femoral head. There are no calcifications or foreign bodies. IMPRESSION: Negative plain film study of the left hip. Depending on symptoms consider MRI follow-up. <Electronically signed by Demetrius Brizuela > 09/20/20 1600
[2020-09-20] MEDS ORDERED: HYDROmorphone 2 MG TAB PO ONE (16:05)
[2020-09-20] MEDS ORDERED: METH4PACK PO (16:21)
[2020-09-20] MEDS ORDERED: LIDO5DIS41 TOP (16:21)
[2020-09-20] MEDS ORDERED: ROBA750T4 PO (16:21)
[2020-09-20] MEDS ORDERED: methylPREDNISolone 125MG 2ML VIAL IV ONE (16:25)
[2020-09-20] MEDS ORDERED: MORPHINE 15 MG SA TAB PO ONE (16:30)
[2020-09-20] MEDS ORDERED: MORPHINE 30 MG TAB **MSIR PO ONE (16:35)
[2020-09-20 17:05] VITALS: BP 134/85
== END 2020-09-20 17:11 | disposition home or self-care (01) ==
LOC: M ED 12:38
DX: M51.17 Intervertebral disc disorders with radiculopathy, lumbosacral region (principal); I10 Essential (primary) hypertension; F17.200 Nicotine dependence, unspecified, uncomplicated; Z79.899 Other long term (current) drug therapy
CPT/HCPCS: 72131; 73502; 80047; 80076; 83605; 85025; 85652; 86140; 87040; 96361; 96374; 96375; 99284; J2270; J2800; J2930

== ENCOUNTER → 2022-08-11 | Outpatient (REF) ==
[~2022-08-11] MED LIST changes: +ALPR1TAB3; +DOXE50CA; +LIDO5DIS41 TOP; +METH4PACK PO; +QUET100T2; +ROBA750T4 PO
== END ==
LOC: M PLAIMG 11:47
PROVIDERS: ATTEND Internal Medicine
DX: Z00.00 Encounter for general adult medical examination without abnormal findings (principal)

== ENCOUNTER → 2023-08-05 | Outpatient (REF) | LOC: M PLAIMG 14:31 | PROVIDERS: ATTEND Internal Medicine | DX: M54.50 Low back pain, unspecified (principal) ==

== ENCOUNTER 2023-10-31 17:49 | Emergency (ER) | payer MEDICARE, MEDICAID ==
[~2023-10-31] VITALS: Ht 177.8 cm; Wt 82.4 kg
[2023-10-31] MEDS ORDERED: ADDE30CA3 PO (17:55)
[2023-10-31] MEDS: dexAMETHasone 20MG/5ML VIAL IV ONE (19:54)
[2023-10-31] MEDS: AMPICILLIN SOD/SULBACTAM SOD 3 GM in D5W MINI-BAG PLUS 100 ML IV ONE (19:54)
[2023-10-31] MEDS: KETOROLAC 30 MG/ML 1ML VIAL IV ONE (19:56)
[2023-10-31] MEDS: NS 1,000 ML IV ONE (19:57)
[2023-10-31 20:11] LABS: BASO # 0.1 10^3/uL (0.0-0.2); BASO % 0.7 % (0.0-1.0); EOS # 0.4 10^3/uL (0.0-0.5); EOS % 6.3 % (0.0-3.0); HEMATOCRIT 38.6 % (42.0-52.0); HEMOGLOBIN 13.5 g/dl (13.5-17.5); MEAN CORPUSCULAR HEMOGLOBIN 33.3 pg (27.0-33.0); MEAN CORPUSCULAR VOLUME 95.3 fl (80.0-96.0); MONO # 0.6 10^3/uL (0.0-0.8); MONO % 8.3 % (2.0-8.0); NEUTROPHILS % 56.3 % (36.0-66.0); PLATELET COUNT, AUTOMATED 265 10^3/uL (150-450); RED BLOOD COUNT 4.05 10^6/uL (4.30-6.10)
[2023-10-31] MEDS ORDERED: ISOVUE-370 76% 100ML VIAL As Ordered ONE (20:12)
[2023-10-31 20:17] LABS: ERYTHROCYTE SEDIMENTATION RATE 8 mm/hr (0-15)
[2023-10-31 22:14] VITALS: BP 126/82; TEMP 97.4; O2SAT 98
[2023-10-31] MEDS ORDERED: AMOX875T2 PO (22:16)
[2023-10-31] MEDS ORDERED: IBUP80TA PO (22:16)
== END 2023-10-31 22:24 | disposition left against medical advice (07) ==
LOC: M ED 17:49
DX: K04.7 Periapical abscess without sinus (principal); R22.0 Localized swelling, mass and lump, head; F17.210 Nicotine dependence, cigarettes, uncomplicated; F12.10 Cannabis abuse, uncomplicated; F10.10 Alcohol abuse, uncomplicated; Z79.2 Long term (current) use of antibiotics; Z79.1 Long term (current) use of non-steroidal anti-inflammatories (NSAID); Z79.899 Other long term (current) drug therapy; Z53.9 Procedure and treatment not carried out, unspecified reason
CPT/HCPCS: 70487; 80047; 85025; 85652; 86140; 96365; 96366; 96374; 96375; 99283; J0295; J1100; J1885; Q9967